=== PATIENT | female | born 1975 | race Caucasian/White ===

== ENCOUNTER → 2017-09-26 | Outpatient (CLI) | payer OTHER ==
--- NOTE | 2017-09-26 17:41 | MR ---
EXAMINATION TYPE: MR brain wo/w con DATE OF EXAM: 09/26/2017 COMPARISON: Most recent MRI brain August 18, 2016 HISTORY: Migraines, White matter changes TECHNIQUE: Multiplanar, multisequence images of the brain and brainstem is performed without and with IV contras t, utilizing 10 mL intravenous Gadavist gadolinium contrast is administered intravenously. Demyelina ting disease protocol with additional Sagittal Flair sequence performed. FINDINGS: T2 Lesions Present : Yes Approximate Number of Lesions: Less than 5 Locations Identified : Scattered Size of Reference Lesion(s): 1. 0.5 cm x 0.4 cm x 0.4 cm on axial image 20 and sagittal image 11 left frontal coronal radiata les ion stable. Enhancing Lesion(s) Present: No Change from Prior: Stable Diffusion weighted images demonstrate no evidence of a recent infarct or other diffusion abnormality. There is no worrisome extra-axial fluid collection. The ventricular system and cisternal spaces ar e normal in size and appearance. The brain volume is age appropriate. Midline structures demonstrate normal morphology. The craniocervical junction appears within normal limits. Post contrast images demonstrate no abnormal enhancement. The dural venous sinuses appear pa tent. The visualized sinuses are clear and the globes are intact. Patchy increased fluid signal righ t mastoid air cells is redemonstrated. IMPRESSION: 1. Stable mild to minimal nonspecific white matter changes. No enhancing lesions are seen. 2. Possible right-sided mastoiditis though unchanged from prior, correlate clinically.
== END | disposition home or self-care (01) ==
LOC: RADMRIMAIN 16:34
PROVIDERS: ATTEND Psychiatry & Neurology Neurology
DX: R90.82 White matter disease, unspecified (principal); Z88.2 Allergy status to sulfonamides
CPT/HCPCS: 70553; A9581

== ENCOUNTER → 2021-09-22 | Outpatient (CLI) | payer OTHER ==
--- NOTE | 2021-09-22 12:38 | US ---
EXAMINATION TYPE: US kidneys/renal and bladder DATE OF EXAM: 09/22/2021 COMPARISON: NONE CLINICAL HISTORY: R10.2, R10.9 LT FLANK PAIN. EXAM MEASUREMENTS: Right Kidney: 11.6x5.3x4.5 cm Left Kidney: 11.1x5.2x4.5 cm Post Void Residual Volume: mL Right Kidney: Small amount of scarring Left Kidney: small amount of scarring. Inf cyst 0.6x0.6x0.6cm Bladder: Empty IMPRESSION: 1. No acute abnormality bilateral kidney ultrasound
== END | disposition home or self-care (01) ==
LOC: RADUSWWP 08:46
PROVIDERS: ATTEND Internal Medicine
DX: R10.2 Pelvic and perineal pain (principal); R10.9 Unspecified abdominal pain
CPT/HCPCS: 76770

== ENCOUNTER → 2022-02-09 | Outpatient (CLI) | payer OTHER ==
--- NOTE | 2022-02-09 15:37 | XR ---
EXAMINATION TYPE: XR knee limited bilateral DATE OF EXAM: 02/09/2022 COMPARISON: NONE HISTORY: 46 year-old female bilateral knee pain TECHNIQUE: 2 views each side FINDINGS: No acute fracture, subluxation, or dislocation. Extensor mechanisms are intact. No significant joint effusion on either side. IMPRESSION: 2 views without acute osseous abnormality seen on either side.
--- NOTE | 2022-02-09 15:39 | XR ---
Bilateral feet HISTORY: Bilateral foot swelling 2 views of each foot submitted Bone mineralization, joint spaces and alignment are maintained. No fracture or dislocation. IMPRESSION: Normal feet.
== END | disposition home or self-care (01) ==
LOC: RADXRMAIN 14:57
PROVIDERS: ATTEND Internal Medicine
DX: M79.671 Pain in right foot (principal); M79.672 Pain in left foot

== ENCOUNTER → 2022-04-06 | Outpatient (CLI) | payer OTHER ==
[2022-04-06 23:31] LABS: Basophils # (A) 0.01 X 10*3/uL (0.00-0.10); Basophils % (A) 0.1 %; Eosinophils # (A) 0 X 10*3/uL (0.04-0.35); Eosinophils % (A) 0 %; HCT 45.9 % (37.2-46.3); HGB 14.7 g/dL (12.0-15.0); Immature Grans, Automated 0.4 %; Lymphocytes # (A) 2.57 X 10*3/uL (0.90-5.00); Lymphocytes % (A) 27.9 %; MCH 30.6 pg (27.0-32.0); MCV 95.6 fL (80.0-97.0); Mean Platelet Volume 9.9 fL (9.5-12.2); Monocytes # (A) 0.52 X 10*3/uL (0.20-1.00); Monocytes % (A) 5.6 %; NRBC Per 100 WBC 0 /100 WBCS (0.0-0.0); Neutrophils # (A) 6.08 X 10*3/uL (1.80-7.70); Platelet Count 353 X 10*3/uL (140-440); WBC 9.22 X 10*3/uL (4.50-10.00)
[2022-04-06 23:40] LABS: ALT 38 U/L (8-44); AST 26 U/L (13-35); African American GFR (CKD) 129.5 (60.0-200.0); Albumin 4.3 g/dL (3.8-4.9); Albumin/Globulin Ratio 1.59 (1.60-3.17); Alkaline Phosphatase 88 U/L (41-126); BUN/Creat Ratio 22.16 Ratio (12.00-20.00); Blood Urea Nitrogen 12.7 mg/dL (9.0-27.0); Calcium 9.7 mg/dL (8.7-10.3); Carbon Dioxide 26.7 mmol/L (20.0-27.5); Chloride 100 mmol/L (96-109); Chol/HDL Ratio 6.19 Ratio; Globulin 2.7 g/dL (1.6-3.3); Glucose 88 mg/dL (70-110); LDL Cholesterol,Calculated 152.5 mg/dL (0.0-131.0); Non-African American GFR(CKD) 111.8 (60.0-200.0); Sodium 136 mmol/L (135-145); Total Bilirubin <0.15 mg/dL (0.30-1.20)
== END | disposition home or self-care (01) ==
LOC: LABWHC1 09:50
PROVIDERS: ATTEND Family Medicine
DX: Z00.00 Encounter for general adult medical examination without abnormal findings (principal); Z11.59 Encounter for screening for other viral diseases
CPT/HCPCS: 36415; 80053; 80061; 84439; 84443; 85025; 86803

== ENCOUNTER → 2022-10-20 | Outpatient (CLI) | payer OTHER ==
--- NOTE | 2022-10-20 09:30 | XR ---
EXAMINATION TYPE: XR knee complete LT DATE OF EXAM: 10/20/2022 COMPARISON: NONE HISTORY: Pain TECHNIQUE: Three views are submitted. FINDINGS: Joint spaces are preserved. Osseous structures are intact. No acute fracture seen. IMPRESSION: 1. No acute fracture or dislocation.
== END | disposition home or self-care (01) ==
LOC: RADXRMAIN 08:55
PROVIDERS: ATTEND Family Medicine
DX: M25.562 Pain in left knee (principal)

== ENCOUNTER → 2022-12-08 | Outpatient (CLI) | payer OTHER ==
[2022-12-08 14:31] LABS: Basophils # (A) 0.01 X 10*3/uL (0.00-0.10); Basophils % (A) 0.1 %; Eosinophils # (A) 0.01 X 10*3/uL (0.04-0.35); Eosinophils % (A) 0.1 %; HCT 42.5 % (37.2-46.3); HGB 13.5 g/dL (12.0-15.0); Immature Grans, Automated 0.3 %; Lymphocytes # (A) 1.87 X 10*3/uL (0.90-5.00); Lymphocytes % (A) 27.6 %; MCH 29.5 pg (27.0-32.0); MCHC 31.8 g/dL (32.0-37.0); MCV 92.8 fL (80.0-97.0); Monocytes # (A) 0.54 X 10*3/uL (0.20-1.00); NRBC Per 100 WBC 0 /100 WBCS (0.0-0.0); Neutrophils # (A) 4.32 X 10*3/uL (1.80-7.70); Neutrophils % (A) 63.9 %; Platelet Count 308 X 10*3/uL (140-440); RBC 4.58 X 10*6/uL (4.10-5.20); RDW 12.3 % (11.5-14.5); WBC 6.77 X 10*3/uL (4.50-10.00)
[2022-12-08 16:06] LABS: ALT 39 U/L (8-44); AST 24 U/L (13-35); African American GFR (CKD) 121.1 (60.0-200.0); Albumin/Globulin Ratio 1.58 (1.60-3.17); Alkaline Phosphatase 89 U/L (41-126); BUN/Creat Ratio 21.63 Ratio (12.00-20.00); Blood Urea Nitrogen 14.9 mg/dL (9.0-27.0); Calcium 9.6 mg/dL (8.7-10.3); Carbon Dioxide 26.3 mmol/L (20.0-27.5); Chloride 105 mmol/L (96-109); Chol/HDL Ratio 5.06 Ratio; Follicle Stimulating Hormone 42.8 mIU/mL; Globulin 2.5 g/dL (1.6-3.3); Glucose 83 mg/dL (70-110); Luteinizing Hormone 34.3 mIU/mL; Non-African American GFR(CKD) 104.5 (60.0-200.0); Potassium 4.5 mmol/L (3.5-5.5); Sodium 142 mmol/L (135-145); Total Protein 6.5 g/dL (6.2-8.2)
[2022-12-08 20:10] LABS: Estradiol 11.7 pg/mL
== END | disposition home or self-care (01) ==
LOC: LABWHC1 08:47
PROVIDERS: ATTEND Family Medicine
DX: Z11.4 Encounter for screening for human immunodeficiency virus [HIV] (principal); E78.5 Hyperlipidemia, unspecified; N95.9 Unspecified menopausal and perimenopausal disorder
CPT/HCPCS: 36415; 80053; 80061; 82670; 83001; 83002; 84144; 84403; 84443; 85025; 87390

== ENCOUNTER → 2023-09-19 | Outpatient (CLI) | payer OTHER ==
--- NOTE | 2023-09-20 08:43 | MM ---
Reason for Exam: Screening (asymptomatic). Last mammogram was performed 14 year(s) and 3 month(s) ago. Patient History: Menarche at age 13. First Full-Term at age 19. Hysterectomy at age 32. 06/22/2008, Benign Core Biopsy on the left side. Maternal grandmother had breast cancer. Risk Values: Kayleen 5 year model risk: 0.9%. NCI Lifetime model risk: 8.1%. Prior Study Comparison: 06/10/2008 Left Diagnostic Mammogram, [facility]. 12/10/2008 Left Diagnostic Mammogram, [facility]. 06/21/2009 Bilateral Screening Mammogram, [facility]. Tissue Density: There are scattered fibroglandular densities. Findings: Analyzed By CAD. Pattern appears symmetrical. Core marker is 9 calcifications scattered bilaterally. Within the left breast. No suspicious groups of microcalcifications, spiculated or lobular masses, architectural distortion or other secondary signs of malignancy are mammographically apparent. Overall Assessment: Benign, BI-RAD 2 Management: Screening Mammogram of both breasts in 1 year. A negative mammogram report should not preclude additional follow up of suspicious palpable abnormalities. Patient should continue monthly self breast exam. A clinical breast exam by your physician is recommended on an annual basis and results should be correlated with mammographic findings. Electronically signed and approved by: Nacho Najera D.O. Radiologis
== END | disposition home or self-care (01) ==
LOC: RADMAMWWP 07:36
PROVIDERS: ATTEND Family Medicine
DX: Z12.31 Encounter for screening mammogram for malignant neoplasm of breast (principal); Z80.3 Family history of malignant neoplasm of breast
CPT/HCPCS: 77067

== ENCOUNTER → 2024-12-10 | Outpatient (CLI) | payer BC ==
[2024-12-10 18:16] LABS: Basophils # (A) 0.06 X 10*3/uL (0.00-0.10); Basophils % (A) 0.9 %; Eosinophils # (A) 0.07 X 10*3/uL (0.04-0.35); Eosinophils % (A) 1.1 %; HCT 44.9 % (37.2-46.3); HGB 14.9 g/dL (12.0-15.0); Lymphocytes % (A) 34.2 %; MCHC 33.2 g/dL (32.0-37.0); MCV 93.3 FL (80.0-97.0); Mean Platelet Volume 11.4 FL (9.5-12.2); Monocytes # (A) 0.57 X 10*3/uL (0.20-1.00); Monocytes % (A) 8.9 %; NRBC Per 100 WBC 0 X 10*3/uL (0.00-0.01); Neutrophils # (A) 3.51 X 10*3/uL (1.80-7.70); Neutrophils % (A) 54.6 %; Platelet Count 270 X 10*3/uL (140-440); RBC 4.81 X 10*6/uL (4.10-5.20); RDW 13.6 % (11.5-14.5); WBC 6.43 X 10*3/uL (4.50-10.00)
[2024-12-10 18:41] LABS: Chol/HDL Ratio 5.06 Ratio; LDL Cholesterol,Calculated 234.4 mg/dL (0.0-131.0)
[2024-12-10 19:11] LABS: ALT 25 U/L (8-44); AST 50 U/L (13-35); Albumin 4.7 g/dL (3.8-4.9); Albumin/Globulin Ratio 1.52 Ratio (1.60-3.17); Alkaline Phosphatase 72 U/L (41-126); BUN/Creat Ratio 20.64 Ratio (12.00-20.00); Bilirubin, Conjugated <0.20 mg/dL (0.20-0.40); Bilirubin,Unconjugated >0.20 mg/dL (0.20-1.00); Blood Urea Nitrogen 22.7 mg/dL (9.0-27.0); Calcium 10.2 mg/dL (8.7-10.3); Carbon Dioxide 28.1 mmol/L (21.6-31.8); Chloride 100 mmol/L (96-109); Globulin 3.1 g/dL (1.6-3.3); Glucose 87 mg/dL (70-110); Potassium 4.3 mmol/L (3.5-5.5); Sodium 138 mmol/L (135-145); T4, Free (Free Thyroxine) <0.11 ng/dL (0.80-1.80); Total Bilirubin 0.4 mg/dL (0.3-1.2); Total Protein 7.8 g/dL (6.2-8.2)
== END | disposition home or self-care (01) ==
LOC: LABWHC1 14:36
DX: E55.9 Vitamin D deficiency, unspecified (principal); E66.9 Obesity, unspecified; E78.5 Hyperlipidemia, unspecified; E03.9 Hypothyroidism, unspecified
CPT/HCPCS: 36415; 80048; 80061; 80076; 82306; 83036; 84439; 84443; 85025